=== PATIENT | female | born 1985 | race Caucasian/White ===

== ENCOUNTER → 2016-11-20 | Outpatient (CLI) | payer OTHER ==
--- NOTE | 2016-11-21 11:39 | RADIOLOGY REPORT (SQ) ---
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 RADIONUCLIDE AND DOSE: 301 microcuries I-123. Administered orally in a tablet ADDITIONAL DRUGS AND DOSES: None. TECHNIQUE: Iodine uptake was measured at 4 and 24 hours. Images of the neck were acquired. LIMITATIONS: None. FINDINGS: 4 HOUR UPTAKE RADIO-IODINE: 4.4%. Normal Range of 5-15% [facility] 24 HOUR UPTAKE RADIO-IODINE: 47%. Normal Range of 15-30% [facility] SCAN: There is a focal cold area over the left lower pole thyroid, correlate with ultrasound for a cy st versus a solid cold nodule. Remainder of the thyroid radio iodine imaging is otherwise unremarkab le. OTHER: No other significant finding. IMPRESSION: Elevated 24 hour uptake of iodine 123 Focal cold area over the left lower pole thyroid, correlate with ultrasound for cyst versus solid col d nodule. TECHNICAL DOCUMENTATION: JOB ID: [id number] [employer]- All Rights Reserved
== END ==
LOC: RAD 08:52
PROVIDERS: ATTEND Nurse Practitioner Family
DX: E04.1 Nontoxic single thyroid nodule (principal)
CPT/HCPCS: 78014; A9516